=== PATIENT | male | born 1990 | race Caucasian/White ===

== ENCOUNTER 2019-10-05 00:34 | Emergency (ER) | payer OTHER ==
[2019-10-05] MEDS ORDERED: Albuterol/Ipratropium NEB.SOL* Albuterol 2.5 MG/Ipratropium 0.5 MG 3 ML INH ONE (01:57)
--- NOTE | 2019-10-05 02:02 | ED ---
Asthma - HPI Summary HPI Summary: 29 year old male presents to the ED with a chief complaint of asthma exacerbation for the last 4 hours. Patient had difficulty breathing and was wheezing. Currently he has difficulty exhaling. Albuterol did not alleviate symptoms. No fever or cough. Patient has never had an attack of this severity before. Patient does not smoke tobacco, vape, or do recreational drugs. Patient rarely drinks alcohol. - History of Current Complaint Chief Complaint: EDShortnessOfBreath Stated Complaint: SOB PER PT Time Seen by Provider: 10/05/19 01:42 Hx Obtained From: Patient Onset/Duration: Sudden Onset, Lasting Hours, Still Present, Worse Since - 4 hours ago Timing: Constant Initial Severity: Severe Current Severity: Severe Pain Intensity: 0 Location/Character: Wheezing - and shortness of breath Alleviating Symptoms: Nothing Associated Signs and Symptoms: Positive: Shortness of Breath - Allergy/Home Medications Allergies/Adverse Reactions: Allergies Allergy/AdvReac Type Severity Reaction Status Date / Time Sulfa (Sulfonamide Allergy Unknown Verified 10/05/19 00:39 Antibiotics) Reaction Details Home Medications: Home Medications ALPRAZolam [Xanax Xr] 0.5 mg PO DAILY 10/05/19 [History Confirmed 10/05/19] Albuterol Sulfate [Albuterol Sulfate Hfa] 1 puff PO DAILY 10/05/19 [History Confirmed 10/05/19] Dextroamphetamine/Amphetamine [Dextroamp-Amphet ER 20 mg Cap] 20 mg PO DAILY 08/15 [History Confirmed 10/05/19] Fluticasone HFA 220 mcg(NF) [Flovent Hfa 220 Mcg(NF)] 1 puff PO DAILY 10/05/19 [ History Confirmed 10/05/19] Lisinopril 10 mg PO BID 10/05/19 [History Confirmed 10/05/19] Rizatriptan Benzoate [Rizatriptan] 1 tab PO DAILY 10/05/19 [History Confirmed ] raNITIdine HCl [Ranitidine HCl] 150 mg PO BID 10/05/19 [History Confirmed ] PMH/Surg Hx/FS Hx/Imm Hx Respiratory History: Reports: Hx Asthma Infectious Disease History: No Infectious Disease History: Denies: Traveled Outside the [place] in Last 30 Days - Family History Known Family History: Positive: None - Social History Alcohol Use: Occasionally Substance Use Type: Reports: None Smoking Status (MU): Never Smoked Tobacco Review of Systems - ROS Summary Review of Systems Summary: Home Medications Medication Instructions Recorded Confirmed Type ALPRAZolam [Xanax Xr] 0.5 mg PO DAILY 10/05/19 10/05/19 History Albuterol Sulfate [Albuterol 1 puff PO DAILY 10/05/19 10/05/19 History Sulfate Hfa] Dextroamphetamine/Amphetamine 20 mg PO DAILY 10/05/19 10/05/19 History [Dextroamp-Amphet ER 20 mg Cap] Fluticasone HFA 220 mcg(NF) 1 puff PO DAILY 10/05/19 10/05/19 History [Flovent Hfa 220 Mcg(NF)] Lisinopril 10 mg PO BID 10/05/19 10/05/19 History Rizatriptan Benzoate [Rizatriptan] 1 tab PO DAILY 10/05/19 10/05/19 History raNITIdine HCl [Ranitidine HCl] 150 mg PO BID 10/05/19 10/05/19 History Negative: Fever Positive: Shortness Of Breath. Negative: Cough All Other Systems Reviewed And Are Negative: Yes Physical Exam - Summary Physical Exam Summary: General: Well-developed, Well-nourished male. No acute distress. HEENT: Normocephalic, Atraumatic. Eyes: Conjuctiva normal, PERRL. Ears: TMs within normal limits. Nares: (-) discharge, (-) erythema. Oropharynx: Clear, mucous membranes moist, (-) exudates. Neck: Soft, FROM, (-) lymphadenopathy, (-) thyromegaly, (-) JVD. Cardiovascular: Normal sinus rhythm, (-) murmur. Lungs: Mildly prolonged expiration, mild wheezing with forced expiration. (-) rales, (-) rhonchi. Abdomen: Soft, non-tender, non-distended, (-) organomegaly, normal bowel sounds. Back: (-) CVA tenderness Extremities: No edema. Skin: Warm, dry, (-) rash. Neuro: Alert and oriented x3, no focal deficits. Psychiatric: Mood normal, affect normal. Triage Information Reviewed: Yes Vital Signs On Initial Exam: Initial Vitals Temp Pulse Resp BP Pulse Ox 97.5 F 88 16 154/99 98 10/05/19 00:35 10/05/19 00:35 10/05/19 00:35 10/05/19 00:35 10/05/19 00:35 Vital Signs Reviewed: Yes Procedures - Sedation Patient Received Moderate/Deep Sedation with Procedure: No Diagnostics - Vital Signs Vital Signs Temp Pulse Resp BP Pulse Ox 10/05/19 00:35 97.5 F 88 16 154/99 98 - Laboratory Lab Statement: Any lab studies that have been ordered have been reviewed, and results considered in the medical decision making process. Asthma Course/Dx - Course Course Of Treatment: 29-year-old male with shortness of breath. He states he got no relief from his albuterol inhaler. Patient received 1 DuoNeb here with significant improvement. Discharged home. Follow-up with PCP. Follow-up sooner for any worsening symptoms. - Diagnoses Provider Diagnoses: Asthma exacerbation Discharge ED - Sign-Out/Discharge Documenting (check all that apply): Patient Departure - discharge - Discharge Plan Condition: Stable Disposition: HOME Patient Education Materials: Asthma (ED) Referrals: [facility] [Outside] Additional Instructions: Follow up with [facility] in 2-3 days. Return to the Emergency Department if you experience new or worsened symptoms. - Billing Disposition and Condition Condition: STABLE Disposition: Home - Attestation Statements Document Initiated by Kennyibe: Yes Documenting Scribe: Cruz Guerra Provider For Whom Kennyibe is Documenting (Include Credential): Lulú Knight MD. Scribe Attestation: Cruz Sahu scribed for Lulú Knight MD. on 10/05/19 at 0350. Scribe Documentation Reviewed: Yes Provider Attestation: The documentation as recorded by the scribeCruz accurately reflects the service I personally performed and the decisions made by me, Lulú Knight MD. Status of Scribe Document: Viewed
[2019-10-05 03:00] VITALS: BP 136/77
== END 2019-10-05 02:59 | disposition home or self-care (01) ==
LOC: ED 00:34
DX: J45.901 Unspecified asthma with (acute) exacerbation (principal); Z79.899 Other long term (current) drug therapy; Z88.2 Allergy status to sulfonamides
CPT/HCPCS: 99283; A9270-GY